=== PATIENT | female | born 1985 | race Caucasian/White ===

== ENCOUNTER 2016-11-09 06:36 | Inpatient (IN) ==
[2016-11-09] MEDS ORDERED: CeFAZolin Pre 2,000 MG/100 ML 2,000 MG/100 ML BAG IVPB ONE (07:19)
[2016-11-09] MEDS ORDERED: Metoclopramide 10 MG/2 ML VIAL IVP ONE (07:19)
[2016-11-09] MEDS ORDERED: Famotidine 20 MG/2 ML VIAL IVP ONE (07:19)
[2016-11-09] MEDS ORDERED: Oxytocin 20 units/ LR 1000 mL 20 UNIT/1,000 ML BAG IVC ONE (07:19)
[2016-11-09] MEDS ORDERED: Ringers Solution, Lactated 1,000 ML IVC ONE (07:19)
--- NOTE | 2016-11-09 07:52 | OB/GYN History & Physical ---
Date of Encounter: 11/09/16 Time of Encounter: 07:40 Assessment and Plan (1) 39 weeks gestation of Current visit: Yes Status: Acute Patient is scheduled for a due to history of prior C-sections. - Cefazolin IV preop. History of Present Illness Chief complaint: Repeat HPI: Ms. Hays is a 31 year old female at 39 wks gestational age with a PMH of gestational diabetes mellitus that presents for repeat . Patient says that she feels movement. She denies any vaginal fluid leakage or bleeding. She denies any regular and consistent contractions. She denies vision changes, headaches, chest pain, nausea, vomiting, fever, dysuria, and diarrhea. GBS negative at 10/18/2016 Blood type: O negative. Hep B surface Antigen: Non-reactive. HIV Ab: Non-reactive. Trep Pallidum Ab: Negative. Rubella Ab: positive. Varicella: Positive. Obstetrical History - Pregnancies : 3 Para: 2 Term: 2 : 0 Ab's: 0 Livin Medications and Allergies 3 Allergy/AdvReac Type Severity Reaction Status Date / Time codeine Allergy Rash Verified 11/09/16 08:14 morphine Allergy Rash Verified 11/09/16 08:14 Exam - Constitutional Constitutional: well developed, well nourished, no acute distress, average body habitus - HEENT HEENT: PERRL, Mucus Membranes Moist - Lungs Respiratory exam: CTAB - Cardiovascular Cardiovascular exam: RRR, +S1, +S2 - Abdomen Abdomen: Present: bowel sounds normal, gravid, non tender - Extremities Extremities exam: radial pulses palpable and symmetrical Deep Tendon Reflex Grade: 2+ Normal - Comments Comments: CN II-XII intact. No focal deficits noted. Results Result Diagrams: 11/09/16 07:40 All other labs normal. - VTE Reasons for not Prescribing Prophylaxis: Treatment not Indicated - Low risk for VTE
[2016-11-09 08:03] LABS: Basophils # 0.1 K/mcL (0.0-0.2); Basophils % 0.4 %; Eosinophils # 0.3 K/mcL (0.0-0.6); Eosinophils % 1.7 %; Hematocrit 35.3 % (35.3-44.9); Hemoglobin 11.5 g/dL (11.5-15.4); Immature Granulocytes % 0.3 % (0-4); Lymphocytes % 19.8 %; Mean Corpuscular HGB Conc 32.6 g/dL (31.6-35.5); Mean Corpuscular Volume 79.9 fL (83.0-100.0); Mean Platelet Volume 10.5 fL (9.4-12.4); Monocytes # 0.7 K/mcL (0.0-1.3); Monocytes % 4.8 %; Platelet Count 443 K/mcL (140-400); Red Blood Count 4.42 M/mcL (3.82-4.97); Red Cell Distribution Width 14.8 % (11.5-14.5)
[2016-11-09 08:20] LABS: Amphetamine Screen,Urine Negative ng/mL (Cutoff=1000); Barbiturate Screen,Urine Negative ng/mL (Cutoff=200); Benzodiazepines Screen,Urine Negative ng/mL (Cutoff=200); Cannabinoid Screen,Urine Negative ng/mL (Cutoff = 50); Cocaine Screen,Urine Negative ng/mL (Cutoff= 300); Opiate Screen,Urine Negative ng/mL (Cutoff=300); Phencyclidine Screen,Urine Negative ng/mL (Cutoff=25)
[2016-11-09] MEDS ORDERED: *HR* Morphine Sulfate/PF 5 MG/10 ML AMPUL ONE (08:30)
[2016-11-09] MEDS ORDERED: *HR* FentaNYL (PF) 100 MCG/2 ML VIAL ONE (08:30)
[2016-11-09] MEDS ORDERED: *HR* Oxytocin 10 UNIT/ML VIAL IM ONE (08:31)
--- NOTE | 2016-11-09 09:13 | Anesthesia Evaluation PreOp ---
Date of Encounter: 11/09/16 Time of Encounter: 09:11 - Past History Planned Operation: C/S Cardiac History: Denies any Significant Hx Pulmonary History: Smoker (1/2), Pack/yr (10) METAL ROOM DENTAL TECHNICIAN History: Denies Any Significant HX Other Medical History: Diabetes Type II Anesthesia History: No Prior Anesthetic Complications, Past Anesthesia (C/S x 3) : Yes Test: Positive Alcohol Use: none Drug use: none Medications and Allergies 3 Allergy/AdvReac Type Severity Reaction Status Date / Time codeine Allergy Rash Verified 11/09/16 08:14 morphine Allergy Rash Verified 11/09/16 08:14 - Meds/Allergy Pre-op Review Medications Reviewed: Yes Allergies Reviewed: Yes Beta Blockers on Current Med List: No Anesthesia Results - Labs 11/09/16 07:40 Anesthesia Exam Height: 5'5" Weight: 208 NPO (# of Hours): 8 Pain Scale: 1 Pain Scale Used: Numeric (1 - 10) - HEENT Pupil (Motor): Pupils equal Mallampati: II Teeth: Normal Oral Opening: Greater than 3 - METAL ROOM DENTAL TECHNICIAN LOC: Oriented METAL ROOM DENTAL TECHNICIAN Motor: Normal RUE, Normal LUE, Normal RLE, Normal LLE, Normal Face METAL ROOM DENTAL TECHNICIAN Sensory: Normal: RUE, LUE, RLE, LLE, Face - Cardiac Rhythm: Regular Murmur: None - Pulmonary Breath Sounds: bilateral Clear Respiratory Effort: Symmetrical Anesthesia Assess/Plan ASA Score: 3 Modified Warren Scale for Level of Consciousness: Cooperative, oriented, and tranquil Anesthetic Plan: Regional Autologous Blood: No Monitoring Plan: Standard Monitors Recovery Plan: PACU (risks discussed, questions answered, consented)
--- NOTE | 2016-11-09 09:56 | Anesthesia Procedures ---
Date of Encounter: 11/09/16 Time of Encounter: 09:56 Procedures: Anesthesia - Epidural/Spinal Patient ID/Chart reviewed: Yes Patient examined: Yes OB Eval: Gestational age: 39 OB Eval: : 3 OB Eval: Hx Para: 2 OB Eval: Dilated at (cm): 3 OB Eval: Contractions: Non-stressed pattern Consent Obtained: Yes Supplemental Oxygen: Nasal Cannula Supplemental Oxygen Rate (L/min): 3 Site Prep: Aseptic Technique, Sterile prep and drape, Povidone-Iodine 1% Patient position: upright Local Anesthetic: Lidocaine 1% Amount of Local Anesthetic used: 3 Interspace Used: L2-L3 Loss of Resistance (CARL): No Blood: No CSF: Yes Paresthesia: No Spinal Needle Gauge: 25 Spinal Dose: Marcaine 12 mg, fentanyl 7 mcg, duramorph 0.2 Procedure: aseptic, csf x 4 quads, clear, tolerated well, effective Vitals + FHT's: 130/85 64 fht 133
[2016-11-09] MEDS ORDERED: *HR* HYDROmorphone (PF) 1 MG/ML SYRINGE IVP PRN ×2 (09:58→11:00)
[2016-11-09] MEDS ORDERED: Ondansetron 4 MG/2 ML VIAL IVP PRN ×3 (09:58→13:27)
--- NOTE | 2016-11-09 10:50 | OB/GYN Procedure Note ---
Section - Date of procedure: 11/09/16 Preop diagnosis: desires repeat , desires sterilization Post-op diagnosis: same Procedure: section, repeat low transverse, bilateral tubal ligation Surgeon: Everett Sorensen Estimated blood loss (cc): 300 Anesthesia Type: Spinal section complications: none Disposition: PACU Specimens: Placenta - (s) A Delivery Date: 11/09/16 Infant Delivery Time: 10:08 Presentation: vertex Gender: Male Viability: Viable Pounds: 8 Ounces: 2 at 1 minute: 9 at 5 minutes: 9 Shoulder Dystocia: not encountered Specimens collected: cord blood Placenta: spontaneous Cord: 3 umbilical vessels
[2016-11-09] MEDS ORDERED: Metoclopramide 10 MG/2 ML VIAL IVP PRN (13:27)
[2016-11-09] MEDS ORDERED: Sennosides 8.6 MG TABLET PO PRN (13:27)
[2016-11-09] MEDS ORDERED: Simethicone 80 MG TAB.CHEW PO PRN (13:27)
[2016-11-09] MEDS ORDERED: Oxytocin 20 units/ LR 1000 mL 20 UNIT/1,000 ML BAG IVC SCH ×2 (13:27)
[2016-11-09] MEDS ORDERED: Rho Immune Globulin 1,500 UNIT SYRINGE IM ONE ×2 (13:27→17:18)
[2016-11-09] MEDS ORDERED: Ringers Solution, Lactated 1,000 ML IVC SCH (13:27)
--- NOTE | 2016-11-09 16:35 | Anesthesia Evaluation Post Op ---
Date of Encounter: 11/09/16 Time of Encounter: 16:33 - Vital Signs Vital Signs: Vital Signs/O2 Sat, Most Current Temp Pulse Resp BP Pulse Ox 98.1 F 79 20 118/77 98 11/09/16 16:10 11/09/16 16:10 11/09/16 16:10 11/09/16 16:10 11/09/16 16:10 - Airway Airway: Non-obstructed - Cardiovascular Regular Rate - Mental Status Mental Status: Alert & Oriented, Answers Appropriately - Pain Pain Scale: 2 Pain Scale used: Numeric (1 - 10) - Nausea Vomiting Nausea Vomiting: Not Present - Hydration Hydration: Tolerates oral liquids - Discharge PostOp Status: Transfer Patient to floor (VSS, minimal pain, no nausea)
[2016-11-09] MEDS: Ibuprofen 600 MG TABLET PO PRN (21:12)
[2016-11-10] MEDS: *HR* OxyCODONE/APAP 5/325 TABLET PO PRN ×5 (00:24→23:45)
[2016-11-10 06:14] LABS: Basophils # 0.1 K/mcL (0.0-0.2); Basophils % 0.4 %; Eosinophils # 0.4 K/mcL (0.0-0.6); Eosinophils % 2.8 %; Hematocrit 33.6 % (35.3-44.9); Hemoglobin 10.8 g/dL (11.5-15.4); Immature Granulocytes % 0.4 % (0-4); Lymphocytes % 22.2 %; Mean Corpuscular HGB Conc 32.1 g/dL (31.6-35.5); Mean Corpuscular Hemoglobin 26.1 pg (28.0-33.3); Mean Corpuscular Volume 81.2 fL (83.0-100.0); Mean Platelet Volume 9.9 fL (9.4-12.4); Monocytes # 0.9 K/mcL (0.0-1.3); Monocytes % 6.8 %; Platelet Count 345 K/mcL (140-400); Red Blood Count 4.14 M/mcL (3.82-4.97); Red Cell Distribution Width 14.7 % (11.5-14.5); Segmented Neutrophils % 67.4 %
[2016-11-10] MEDS: Ibuprofen 600 MG TABLET PO PRN ×3 (06:28→19:13)
[2016-11-10] MEDS: Prenatal Vit/FA 1 EACH TABLET PO SCH (09:34)
--- NOTE | 2016-11-10 10:03 | OB/GYN Progress Note ---
Date of Encounter: 11/10/16 Time of Encounter: 09:57 - Assessment and Plan (1) Status post section Current Visit: Yes Status: Acute S/P necessary as patient had previous Plan: -Continue with post op pain control with PRN ibuprofen and oxycodone -Colace BID -Daily Iron, vitamins -Regular diet (2) 39 weeks gestation of Current Visit: Yes Status: Acute Subjective - Subjective Principal diagnosis: s/p Interval history: Patient doing well post-op. She notes increased pain when getting out of bed that was relieved with pain medication. She states she has minimal vaginal bleeding and some abdominal tenderness. Doing well otherwise. Patient reports: appetite normal, voiding normally, pain well controlled, ambulating normally, no dizzy ambulation, no nauseated [place]: doing well, nursing well Objective - Vital Signs Latest vital signs: Vital Signs Temp Pulse Resp BP Pulse Ox 11/10/16 09:30 98.3 F 74 16 118/72 11/10/16 03:55 98.1 F 81 14 107/65 96 11/10/16 00:25 97.7 F 73 14 104/62 97 11/09/16 19:44 98.1 F 68 16 103/65 97 11/09/16 16:10 98.1 F 79 20 118/77 98 11/09/16 15:06 97.7 F 74 18 117/69 96 11/09/16 14:00 97.4 F L 62 16 103/62 96 11/09/16 13:30 97.6 F 60 16 104/69 96 11/09/16 13:00 97.6 F 55 14 101/61 96 Intake and Output 11/09/16 11/10/16 11/10/16 23:59 07:59 15:59 Intake Total 450 / 450 600 / 600 Output Total 1475 / 1475 1225 / 1225 Balance -1025 / -1025 -625 / -625 Intake: Oral 450 / 450 600 / 600 Output: Urine 200 / 200 Catheter 1475 / 1475 1025 / 1025 Other: Weight 90.1 kg Patient Weight 11/10/16 23:59 Weight 90.1 kg - Exam Lungs: bilateral: normal Chest: Normal S1, Normal S2 Extremities: Present: normal, edema. Absent: tenderness Abdomen: Present: soft Incision: Present: normal, dry, intact, dressed Uterus: Present: firm - Labs Labs: Laboratory Results - last 24 hr 11/09/16 11/09/16 11/10/16 11:03 11:03 06:07 WBC 13.4 H RBC 4.14 Hgb 10.8 L Hct 33.6 L MCV 81.2 L MCH 26.1 L MCHC 32.1 RDW 14.7 H Plt Count 345 MPV 9.9 Immature Gran % 0.4 Seg Neutrophils % 67.4 Lymphocytes % 22.2 Monocytes % 6.8 Eosinophils % 2.8 Basophils % 0.4 Neutrophils # 9.0 H Lymphocytes # 3.0 Monocytes # 0.9 Eosinophils # 0.4 Basophils # 0.1 Volume Blood 25 H Screen POSITIVE Baby's Blood Type O RH POSITIVE Mother's Blood Type O RH NEGATIVE Rhogam Indicated YES Rhogam Req for Mother 2 - Allied health notes Allied health notes reviewed: nursing
[2016-11-11] MEDS: Ibuprofen 600 MG TABLET PO PRN ×3 (01:27→14:06)
[2016-11-11] MEDS: *HR* OxyCODONE/APAP 5/325 TABLET PO PRN ×3 (03:21→11:33)
[2016-11-11] MEDS: Prenatal Vit/FA 1 EACH TABLET PO SCH (07:41)
--- NOTE | 2016-11-11 09:37 | Discharge Summary ---
Date of Encounter: 11/11/16 Time of Encounter: 09:32 - Discharge Diagnosis (1) Status post tubal ligation Priority: Secondary Status: Acute Comments: continue routine postop care (2) Breast feeding status of mother Priority: Secondary Status: Acute Comments: support prn (3) Status post section Priority: Primary Status: Acute Comments: Continue routine postop/ care discharge home today follow up with Dr. Sorensen in 2 weeks for incision check - Discharge Medications Prescriptions: OxyCODONE/APAP 5/325 [Percocet 5/325 MG] 1 each PO Q4HR PRN #30 tablet PRN Reason: Moderate pain 4-6 Ibuprofen [Motrin] 600 mg PO Q6HR PRN #60 tablet PRN Reason: Cramping Breast Pump [BREAST PUMP] 1 each .ROUTE AD #1 each Docusate [Colace] 100 mg PO BID #60 capsule Home Medications: Breast Pump [BREAST PUMP] 1 each .ROUTE AD #1 each 11/11/16 [Rx] Docusate [Colace] 100 mg PO BID #60 capsule 11/11/16 [Rx] Ibuprofen [Motrin] 600 mg PO Q6HR PRN #60 tablet 11/11/16 [Rx] OxyCODONE/APAP 5/325 [Percocet 5/325 MG] 1 each PO Q4HR PRN #30 tablet 11/11/16 [Rx] Vit/FA 1 each PO DAILY tablet 11/11/16 [Rx] Allergies/Adverse Reactions: 3 Allergy/AdvReac Type Severity Reaction Status Date / Time codeine Allergy Rash Verified 11/09/16 08:14 morphine Allergy Rash Verified 11/09/16 08:14 Data Procedures and tests throughout hospitalization: Laboratory Tests 11/09/16 11/09/16 11/09/16 07:40 07:40 11:03 WBC 15.1 H RBC 4.42 Hgb 11.5 Hct 35.3 MCV 79.9 L MCH 26.0 L MCHC 32.6 RDW 14.8 H Plt Count 443 H MPV 10.5 Immature Gran % 0.3 Seg Neutrophils % 73.0 Lymphocytes % 19.8 Monocytes % 4.8 Eosinophils % 1.7 Basophils % 0.4 Neutrophils # 11.0 H Lymphocytes # 3.0 Monocytes # 0.7 Eosinophils # 0.3 Basophils # 0.1 Volume Blood Urine Opiates Screen Negative Ur Barbiturates Screen Negative Ur Phencyclidine Scrn Negative Ur Amphetamines Screen Negative U Benzodiazepines Scrn Negative Urine Cocaine Screen Negative U Marijuana (THC) Screen Negative Screen POSITIVE Baby's Blood Type O RH POSITIVE Mother's Blood Type O RH NEGATIVE Rhogam Indicated YES Rhogam Req for Mother 2 11/09/16 11/10/16 11:03 06:07 WBC 13.4 H RBC 4.14 Hgb 10.8 L Hct 33.6 L MCV 81.2 L MCH 26.1 L MCHC 32.1 RDW 14.7 H Plt Count 345 MPV 9.9 Immature Gran % 0.4 Seg Neutrophils % 67.4 Lymphocytes % 22.2 Monocytes % 6.8 Eosinophils % 2.8 Basophils % 0.4 Neutrophils # 9.0 H Lymphocytes # 3.0 Monocytes # 0.9 Eosinophils # 0.4 Basophils # 0.1 Volume Blood 25 H Urine Opiates Screen Ur Barbiturates Screen Ur Phencyclidine Scrn Ur Amphetamines Screen U Benzodiazepines Scrn Urine Cocaine Screen U Marijuana (THC) Screen Screen Baby's Blood Type Mother's Blood Type Rhogam Indicated Rhogam Req for Mother Date of admission: 11/09/16 06:36 Primary care physician: PCP NONE Discharging clinician: Rina Wood Anticipated date of discharge: 11/11/16 - Patient Status Disposition: Home, Self-Care Condition: Good Functional capacity at discharge: independent ambulation - Discharge Instructions Follow Up With: NONE,PCP [Primary Care Provider] - Everett Sorensen MD [Partnered Physician] - - Diet and Activity Activity: increase activity as tolerated Hospital Course Reason for admission: section Delivery: section Laceration: none Other procedures: tubal ligation complications: none Discharge diagnosis: IUP at term delivered [place] baby: male (breast feeding) Time Attestation: Total time spent providing and/or coordinating discharge services: Time Spent: Less than 30 minutes - VTE Reasons for not Prescribing Prophylaxis: Treatment not Indicated - Low risk for VTE Documentation of Mechanical Device: Intermittent pneumatic compression device Exam - Constitutional Vitals: Temp Pulse Resp BP Pulse Ox 97.9 F 77 16 148/85 98 11/11/16 07:30 11/11/16 07:30 11/11/16 07:30 11/11/16 07:30 11/10/16 19:50 General appearance IM: A&O X 3, pleasant, answers questions appropriately - Respiratory Respiratory exam: Present: CTAB - Cardiovascular Cardiovascular exam IM: Present: RRR, +S1, +S2 - GI/Abdominal GI/Abdominal exam IM: normal bowel sounds - Uterine Tone: Firm Uterus Position: 1 Finger Below Umbilicus, Midline - Extremities Exam Extremities exam IM: Present: full ROM, normal capillary refill, normal inspection - Neurological Exam Neurological exam: alert, oriented X3, reflexes normal - Other Additional findings: oarrs report reviewed
== END 2016-11-11 15:06 | disposition home or self-care (01) | DRG 540 ==
LOC: 1NENULAB 06:36 → 1NENUOBS 12:59
PROVIDERS: ADMIT Obstetrics & Gynecology; ATTEND Obstetrics & Gynecology